=== PATIENT | male | born 1940 | race Two or more races ===

== ENCOUNTER → 2017-09-28 | Emergency (ER) | payer OTHER ==
[~2017-09-28] VITALS: Ht 170.2 cm; Wt 81.6 kg
[~2017-09-28] MED LIST: ASPIRINA; AVALIDE 300-12.1 TA1 PO; CARDURA8 MG PO; CITALOPRAM HBR20 MG; DIOCTO50 MG/5 ML; GLIMEPIRIDE2 MG; GLUCOTROL10 MG PO; HUMULIN 70/30 PE3 ML SQ; LANTUS SOL100 UNIT/1; METFORMIN HCL1000 MG PO; METFORMIN HCL500 MG; NEURONTIN300 MG PO; NORVASC10 MG PO; PLAVIX75 MG PO; PRE PROTEIN1 TAB PO; TOPROL XL50 MG PO; VALSARTAN-HCTZ1 EAC3; ZOCOR40 MG PO; [UNRECOGNIZED DRUG - OTHER]
== END | disposition home or self-care (01) ==
LOC: ER 16:49
DX: H11.31 Conjunctival hemorrhage, right eye (principal)